=== PATIENT | female | born 1985 | race Caucasian/White ===

== ENCOUNTER 2016-06-13 05:37 | Day surgery (SDC) | payer OTHER ==
[~2016-06-13] VITALS: Ht 160 cm; Wt 70.9 kg
[~2016-06-13 05:37] MED LIST: ADVIL,NUPRIN,M200 MG PO; ALKA-SELTZER P1 EAC2 PO; CLARITIN10 MG PO; EXCEDRIN EXTRA1 EACH PO; GUMMI BEAR MUL1 EACH PO; LAXATIVE DIETA500 MG PO; XANAX0.5 MG PO
[2016-06-13 06:10] VITALS: BP 119/58
[2016-06-13] MEDS ORDERED: MOTRIN800 MG PO (07:23)
[2016-06-13] MEDS ORDERED: PERCOCET 5/31 TABLET PO (07:23)
[2016-06-13 09:44] VITALS: BP 111/58
[2016-06-13 10:41] VITALS: BP 106/62
[2016-06-13 12:49] VITALS: BP 99/59
[2016-06-13 13:57] VITALS: BP 118/67
== END 2016-06-13 14:10 | disposition home or self-care (01) ==
LOC: SDC 05:37
DX: D27.1 Benign neoplasm of left ovary (principal); N94.10 Unspecified dyspareunia; Z82.49 Family history of ischemic heart disease and other diseases of the circulatory system; Z82.5 Family history of asthma and other chronic lower respiratory diseases
CPT/HCPCS: 88305; 88307; J0690; J1100; J1170; J1885; J2250; J2405; J2710; J3010; S0020